=== PATIENT | female | born 1965 | race Caucasian/White ===

== ENCOUNTER 2020-04-07 10:57 | Emergency (ER) | payer SELFPAY ==
[2020-04-07 11:58] LABS: #Monocytes 0.2 thou/uL (0.11-0.59); #Neutrophils 9.8 thou/uL (1.40-6.50); %Basophils 0.1 % (0.0-1.0); %Eosinophils 0.3 % (0.0-10.0); %Monocytes 1.5 % (0.0-10.0); %Neutrophils 89.1 % (42.0-75.0); Hemoglobin 14.9 g/dL (12.0-16.0); Mean Corpuscular HGB CONC 35.1 g/dL (32.0-36.0); Mean Corpuscular Volume 91.2 fL (78.0-98.0); Mean Platelet Volume 7.3 fL (7.4-10.4); Platelet Count 346 thou/uL (130-400); Red Blood Cell (RBC) Count 4.67 mill/uL (4.20-5.40)
[2020-04-07 12:14] LABS: ALT (SGPT) 25 U/L (8-55); AST (SGOT) 64 U/L (5-34); Albumin 3.3 g/dL (3.5-5.0); Alkaline Phosphatase 77 U/L (40-110); Anion Gap 19 mmol/L (10-20); BUN (Urea Nitrogen) 12 mg/dL (9.8-20.1); Bilirubin, Total 0.4 mg/dL (0.2-1.2); CK (CPK) 27 U/L (29-168); Calc. Creatinine Clearance 0 mL/min (70-130); Calcium 8.6 mg/dL (7.8-10.44); Carbon Dioxide 19 mmol/L (22-29); Chloride 102 mmol/L (98-107); Globulin 4.1 g/dL (2.4-3.5); Glucose 128 mg/dL (70-105); Potassium 4.2 mmol/L (3.5-5.1); Protein, Total 7.4 g/dL (6.0-8.3); Sodium 136 mmol/L (136-145)
--- NOTE | 2020-04-07 12:36 | RAD ---
AP PORTABLE CHEST: 04/07/20 1150 HOURS COMPARISON: 08/17/2009 FINDINGS: The heart is slightly larger than before but still within normal limits given the AP projection and b jaye habitus. The main finding on the study is severe patchy bilateral pulmonary infiltrates, some of which are ground glass, and others are more dense. In the appropriate clinical context, COVID should e considered. There are no effusions. IMPRESSION: Severe bilateral parenchymal infiltrates. POS: HOME
[2020-04-07] MEDS ORDERED: Dexamethasone 10 MG/ML VIAL ONE (12:50)
[2020-04-07] MEDS ORDERED: Enoxaparin Sodium 100 MG/ML SYRINGE ONE (12:50)
--- NOTE | 2020-04-07 13:25 | CT ---
CT ANGIO CHEST: 04/07/20 HISTORY/TECHNIQUE: A spiral CT of the chest was done on this patient with a grossly a normal chest x-ray, dyspnea and an elevated D-dimer. FINDINGS: There is moderately good opacification of the pulmonary arteries. No filling defects are seen through the medium-sized branches to suggest emboli. More distal smaller branch emboli would be missed on th is study, as there is some motion and artifact. There are a few enlarged nodes in the mediastinum, up to 2 cm, around the AP window. The major finding on the study is diffuse severe bilateral parenchyma l infiltrates, many of which have a ground glass nature. Infection is presumed and COVID would seem l ikely. There are no effusions. There are no gross acute findings in the upper abdomen. The liver seem s generous in size. IMPRESSION: 1. Medium sensitivity study showing no evidence of emboli through the medium-sized branches. 2. Severe parenchymal infiltrates, presumably due to COVID. Report called to Dr. Serna at 1300 hours on 04/07/20. CODE CR POS: HOME
[2020-04-07] MEDS ORDERED: Ondansetron PF 4 MG/2 ML Vial ONE (13:40)
[2020-04-07] MEDS ORDERED: Iopamidol 370 76% 100 ML VIAL ONE (15:44)
== END 2020-04-07 13:33 | disposition short-term general hospital (02) ==
LOC: BURERS 10:57
DX: U07.1 COVID-19 (principal); I10 Essential (primary) hypertension; E78.00 Pure hypercholesterolemia, unspecified; Z87.891 Personal history of nicotine dependence; Z79.899 Other long term (current) drug therapy
CPT/HCPCS: 71045; 71275; 80053; 82550; 83605; 84484; 85025; 85379; 93005; 96372; 96374; 96375; J1100; J1650; J2405; Q9967

== ENCOUNTER 2020-04-20 11:37 | Emergency (ER) | payer SELFPAY ==
[2020-04-20] MEDS ORDERED: Clindamycin 150 MG CAP ONE (12:11)
== END 2020-04-20 12:14 | disposition home or self-care (01) ==
LOC: BURERS 11:37
DX: K04.7 Periapical abscess without sinus (principal); R22.0 Localized swelling, mass and lump, head; Z79.899 Other long term (current) drug therapy; I10 Essential (primary) hypertension; E78.5 Hyperlipidemia, unspecified
CPT/HCPCS: 99283

== ENCOUNTER 2022-09-25 10:51 | Outpatient (CLI) | payer OTHER | END 2022-09-25 10:52 | disposition home or self-care (01) | LOC: BURRAD 10:51 | PROVIDERS: ATTEND Physician Assistant | DX: M25.561 Pain in right knee (principal); M79.671 Pain in right foot; M19.071 Primary osteoarthritis, right ankle and foot; M25.774 Osteophyte, right foot ==